=== PATIENT | male | born 1950 | race Caucasian/White ===

== ENCOUNTER 2023-09-06 09:12 | Emergency (ER) | payer OTHER, MEDICARE ==
[~2023-09-06] VITALS: Ht 177.8 cm; Wt 72.6 kg
[~2023-09-06 09:12] MED LIST: CIME300 PO; ESCI5; FINA5; PRED20 PO; Percocet 5-3251 EACH PO; SIMV10
[2023-09-06 09:33] VITALS: BP 136/60
[2023-09-06] MEDS ORDERED: ASPI81CH PO (10:08)
[2023-09-06] MEDS ORDERED: Norco 5-325 Ta1 EACH PO (10:44)
== END 2023-09-06 10:57 | disposition home or self-care (01) ==
LOC: ER 09:12
DX: S59.291A Other physeal fracture of lower end of radius, right arm, initial encounter for closed fracture (principal); W01.0XXA Fall on same level from slipping, tripping and stumbling without subsequent striking against object, initial encounter; E78.00 Pure hypercholesterolemia, unspecified; Z88.6 Allergy status to analgesic agent; Z79.899 Other long term (current) drug therapy; Z79.82 Long term (current) use of aspirin
CPT/HCPCS: 29105; 73110; 73130; 99283-25